=== PATIENT | female | born 1990 | race Caucasian/White ===

== ENCOUNTER 2022-08-01 15:25 | Outpatient (REF) | payer OTHER, SELFPAY | END 2022-08-01 15:26 | disposition home or self-care (01) | LOC: HO.HOSX 15:25 | PROVIDERS: PCP Family Medicine; Visit Provider Physician Assistant | DX: M54.12 Radiculopathy, cervical region (principal); Z47.89 Encounter for other orthopedic aftercare; Z98.890 Other specified postprocedural states | CPT/HCPCS: 99212 ==

== ENCOUNTER 2022-09-11 14:30 | Outpatient (REF) | payer OTHER, SELFPAY | END 2022-09-11 14:31 | disposition home or self-care (01) | LOC: HO.HOSX 14:30 | PROVIDERS: Visit Provider Physician Assistant | DX: Z13.89 Encounter for screening for other disorder (principal) ==

== ENCOUNTER 2022-09-12 14:30 | Outpatient (REF) | payer OTHER, SELFPAY ==
--- NOTE | ~2022-09-12 | XR_ITS ---
EXAMINATION: XR CERVICAL SPINE CLINICAL INFORMATION: Radiculopathy. COMPARISON: None available. TECHNIQUE: 3 views of the cervical spine were obtained. FINDINGS: There is mild straightening of cervical lordosis. There is flexible disc prostheses at C6-C7 disc level. Rest of the disc heights, vertebral heights and alignment is normal. There is minimal posterior cervical spondylosis at C4-C5 disc level. On flexion-extension views there is no subluxation seen. The prevertebral soft tissues are normal. XR/XR cervical spine 4V IMPRESSION: 1. C6-C7 disc prostheses. No subluxation seen on flexion-extension views. 2. There is minimal posterior cervical spondylosis C4-C5 disc level. No visible acute fracture or dislocation seen.
== END 2022-09-12 14:31 | disposition home or self-care (01) ==
LOC: HO.HOSX 14:30
PROVIDERS: Visit Provider Physician Assistant
DX: M54.12 Radiculopathy, cervical region (principal)
CPT/HCPCS: 72050; 99212

== ENCOUNTER 2023-01-28 14:29 | Outpatient (AMB) | payer OTHER, SELFPAY ==
--- NOTE | 2023-01-28 14:35 | A.SPINEOV_ITS ---
Intake Intake Visit Reasons: Neck pain Intake Note: Ms. Juarez is here today c/o neck pain. Fast Food Worker Required: No Assessment & Plan Assessment & Plan (1) Cervical radiculopathy: Code(s): M54.12 - Radiculopathy, cervical region Plan Kathi is a 32 year old female who comes in today as a F/U patient with a new complaint. She is known to our service after having a C6-7 ACDF completed back in June of this year. She reports resolution of her left-sided radiculopathy post surgery. She most recently (2 months ago) had surgery on her right ankle to repair a tendon rupture, and had to use crutches for well over a month. She states that upon stopping the use of her crutches she began having left-sided anterior, posterior, and lateral neck pain associated with shooting radicular pains across her left shoulder, down the left deltoid, through the left triceps, terminating at the left elbow. She states this shooting pain has associated burning and tingling with it. She states that she also has some nonspecific left 3rd and 4th digit pain which she states may be due to her psoriatic arthritis / fibromyalgia which she was unable to treat with her usual DMARD regimen for the last 4 months. She states she just resumed treatment yesterday. Physical exam: Mobility / function: Patient ambulates well, can rise from a seated position without difficulty. Sensation: Grossly intact CN: II-XII grossly intact. Strength Testing Upper Extremities: - Deltoid 5/5 right 5/5 left - Biceps 5/5 right 5/5 left - Triceps 5/5 right 5/5 left - Wrist Ext 5/5 right 5/5 left - Wrist Flex 5/5 right 5/5 left - Hand director athletic 5/5 right 4/5 left - Interossei 5/5 right 4/5 left Pain limiting strength Strength Testing Lower Extremities: - Hip flexion 5/5 right 5/5 left - Knee extension 5/5 right 5/5 left - Dorsiflexion 5/5 right 5/5 left - Plantar flex 5/5 right 5/5 left - EHL 5/5 right 5/5 left Reflexes: - Biceps Right - 2+ Left - 2+ - Triceps Right - 2+ Left - 2+ - Patellar Right - 2+ Left - 2+ - Achilles Right - 2+ Left - 2+ - Plantar Right - 2+ Left - 2+ (+) Spurling's (-) Lhermitte's (-) Clonus (-) Chan?s sign The patient has not had MRI imaging since April of this year. She states the symptoms described above her different than those she was experiencing prior to surgery. At this time I am suspecting the possibility of he disc herniation of the cervical spine which may be causing her to have he left-sided radicular pain that is described above. 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 She also reports that she is having difficulty sleeping and finds herself tossing and turning throughout the night. This case was discussed with Dr. Ramos, we are in agreement that we would like her to be sent for a cervical MRI to re-evaluate the possibility of cervical disc herniation. Total amount of time spent in this visit was 35 minutes in discussion of symptoms, MRI imaging results and subsequent plan of care. Jose Ramos MD,PhD [facility] Orders: Orders MR cervical spine wo con Today M54.12 - Radiculopathy, cervical region Coding Level of Care Code Est Pt Level 4 (60744) Diagnoses Cervical radiculopathy M54.12
== END 2023-01-28 15:12 | disposition home or self-care (01) ==
PROVIDERS: PCP Family Medicine; Visit Provider Neurological Surgery
DX: M54.12 Radiculopathy, cervical region (principal)
CPT/HCPCS: 99214

== ENCOUNTER → 2023-01-28 14:29 | Outpatient (BNVA) | payer OTHER, SELFPAY | PROVIDERS: PCP Family Medicine; Visit Provider Neurological Surgery | DX: M54.12 Radiculopathy, cervical region (principal) | CPT/HCPCS: 99212 ==

== ENCOUNTER 2023-02-04 10:39 | Outpatient (REF) | payer OTHER, SELFPAY ==
--- NOTE | ~2023-02-04 | XR_ITS ---
EXAMINATION: XR CERVICAL SPINE CLINICAL INFORMATION: Cervical radiculopathy COMPARISON: 09/12/2022 TECHNIQUE: 5 views of the cervical spine were obtained including flexion and extension views FINDINGS: There is straightening of normal lordosis C6-C7 disc spacer is stable in position. On neutral view, no listhesis is seen. Trace anterolisthesis C3 on C4 on flexion view and trace retrolisthesis C3 on C4 on extension view. Odontoid is obscured. Trace curvature of the spine to the left. Posterior elements are aligned. No prevertebral soft tissue swelling seen. Lung apices are clear. Soft tissues are unremarkable. XR/XR cervical spine 4V IMPRESSION: Cervical lordotic straightening. Stable postoperative changes C6-C7. Flexion-extension views as described.
== END 2023-02-04 10:40 | disposition home or self-care (01) ==
LOC: HO.HOSX 10:39
PROVIDERS: Visit Provider Physician Assistant
DX: Z13.89 Encounter for screening for other disorder (principal)

== ENCOUNTER 2023-02-26 08:40 | Emergency (ER) | payer OTHER, SELFPAY ==
--- NOTE | ~2023-02-26 | XR_ITS ---
EXAMINATION: XR CHEST CLINICAL INFORMATION: Chest pain shortness of breath COMPARISON: None available. TECHNIQUE: Frontal view of the chest was obtained. FINDINGS: Slight bibasilar atelectasis. No pneumothorax. Trachea is midline. Cardiac mediastinal silhouette is not enlarged. No large pleural region. Osseous structures are intact. Soft tissues are unremarkable. XR/XR chest 1V IMPRESSION: Slight bibasilar atelectasis.
--- NOTE | 2023-02-26 08:44 | ECG_ITS ---
Test Reason : cp Blood Pressure : / mmHG Vent. Rate : 084 BPM Atrial Rate : 084 BPM P-R Int : 134 ms QRS Dur : 098 ms QT Int : 360 ms P-R-T Axes : 038 -02 -05 degrees QTc Int : 425 ms Normal sinus rhythm with sinus arrhythmia Nonspecific T wave abnormality Inferior leads Abnormal ECG No previous ECGs available Referred By: Generic ED Physician Electronically Signed By:RO BORRERO MD
--- NOTE | 2023-02-26 09:05 | ED.GENADULT ---
HPI - General Adult General Chief complaint: Chest Pain Stated complaint: Chest pain - referred by PCP Time Seen by Provider: 02/26/23 08:46 Source: patient Mode of arrival: ambulatory Limitations: no limitations History of Present Illness HPI narrative: 32-year-old female history of asthma, obesity, fibromyalgia, anxiety, cervical radiculopathy status post C6-C7 ACDF in June 2022, presents with complaints of chest pain, shortness of breath, neck pain, all of which have been going on intermittently for a few weeks however acutely worsening today she spoke to her neuro spine PA data conversion developer who advised patient to come in for evaluation. Chest pain substernal, nonradiating associated with shortness of breath at rest and with exertion. Also complains of neck pain going on for a while but worsening in severity at times has intermittent numbness to b/l UE. Patient reports she was recently hospitalized at [facility] for cardiac/noncardiac chest pain and cervical angina. Also reports in October had ankle surgery. Not on blood thinners. No history of DVT. Denies fevers, chill, nausea, vomiting, abdominal pain, leg swelling, trauma. Related Data Previous Rx's Medication Instructions Recorded ketorolac 10 mg tablet 10 mg PO TID PRN pain 5 days #15 02/26/23 tabs lidocaine 5 % topical patch 1 patch topical DAILY PRN pain #15 02/26/23 ea prednisone 20 mg tablet 40 mg (2 x 20 mg) PO DAILY 5 days 02/26/23 #10 tabs Allergies Allergy/AdvReac Type Severity Reaction Status Date / Time No Known Allergies Allergy Verified 02/26/23 08:44 Review of Systems Review of Systems: Constitutional : No Weight loss, No Fever, No Chills, No Fatigue, No Malaise ENT/Mouth : No sore throat, No Rhinorrhea Eyes: No Eye Pain, No Swelling, No Redness Cardiovascular : + Chest Pain, + SOB, No Dyspnea on Exertion, No Orthopnea, No Edema, No Palpitations Respiratory : No Cough, No Sputum, No Wheezing Gastrointestinal : No Nausea, No Vomiting, No Diarrhea, No Constipation, No abdominal Pain, No Hematochezia, No Melena Genitourinary : No Dysuria, No Urinary Frequency, No Hematuria, Musculoskeletal : No joint pain, No Myalgias, No Joint Swelling, + neck pain Skin : No Skin Lesions, No rash Neuro : No Weakness, No Numbness, No Dizziness, No Headache Psych : No Anxiety/Panic, No Depression All other systems reviewed and are negative Yes all other systems are reviewed and are negative [facility] Past Medical History Attestation statement: The following information was validated with the patient. Source: old records reviewed and nursing notes reviewed Social History Social History Advance Directives: No Advance Directives Information Provided: No Physical Exam ED Vital Signs: Vital Signs - 24 hr 02/26/23 09:14 02/26/23 10:51 02/26/23 15:25 Temperature 98.3 F 97.6 F Pulse Rate 76 82 82 Respiratory Rate 14 16 18 Blood Pressure 132/72 114/80 123/79 Pulse Oximetry 97 97 99 Oxygen Delivery Method Room Air Room Air Room Air BMI result Body Mass Index 34.6 vss Appearance: Alert.? Oriented X3.? No acute distress.? Head: Normocephalic, atraumatic, no step-offs or deformities Eyes: Pupils equal, round and reactive to light.? ENT: Pharynx normal.? Neck: Normal inspection.?.?+ Spurling sign b/l - lehermit. CVS: Normal heart rate and rhythm.? Pulses normal.? Respiratory: No respiratory distress.? Breath sounds normal.? Abdomen: Soft and nontender.? Skin: Skin warm and dry.? Normal skin color.? Normal skin turgor.? Extremities: No lower extremity edema.? No calf ttp. 5/5 strength to bilateral upper and lower extremities. Normal hand scaffold setter b/l. No wrist drop. Normal sensation distally. Neuro: Oriented X 3.? No motor deficit.? No sensory deficit. CN 2-12 intact. No saddle paresthesias. Ambulating w/ steady gait normal coordination. Rectal exam: Kandice SEARS at bedside: unremarkable, normal rectal tone, and anal wink. Course Reevaluation(s) Reevaluation #1: Records were obtained from [facility] it appears as though patient was seen on 02/21/2023 she had a ultrasound down are lower extremity on the right venous duplex negative for DVT. Time: 09:40 Reevaluation #2: CBC with no acute findings. Chemistry unremarkable no acute electrolyte abnormalities. Beta hCG negative. Troponin negative, EKG nonischemic, patient without significant risk factors for ACS unlikely ACS. Patient's D-dimer negative. I do not suspect PE, patient is not tachycardic, or tachypneic. Spoke to Jose Louis from neuro spine if no new neurological sx no need for emergent MRI. Patient has a hx of two level fusion w/ new onset pain w/ radicular sx so MRI was recommended but no neurological sx on exam. He advised patient to come in to be seen if worsening sx. He is concerned for ? Cervical disc herniation. Time: 11:54 Reevaluation #3: Reported to neuro spine that she has been urinating on herself randomly. It went in again recess neurological exam, neuro was nonfocal no saddle paresthesias patient ambulatory with steady gait normal coordination. I did do a rectal exam on this patient patient has normal anal wink and rectal tone. Discussing this case w/ my attending Bladder scan pending no episodes of incontinence here patient has the urge to pee and goes to the bathroom appropriately. No episodes of bowel incontinence either. No signs of urinary retention or complaints of urinary retention. Time: 13:19 Additional Reevaluation(s): Bladder scan 9 not retaining again unlikely cord compression or cauda equina. 1520- Discussed this case w/ Dr. Sweeney who agrees w/ my plan based of my hx no need for emergent MRI. Dr. Griffin will go in to evaluate patient. 1552- UA w/o infection. Dr. Griffin spoke to patient & evaluated her no need for MRI at this time, she spoke to her about dispo. 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 I agree with this plan. Educated patient on diagnosis and treatment plan, answered all question, patient verbalizes understanding. At this time patient will be discharged home, advised to return with new or worsening symptoms. Educated on worrisome signs and symptoms and when to return. At this time I feel comfortable discharge home. Medications Administered Discontinued Medications Generic Name Dose Route Start Last Admin Trade Name Freq PRN Reason Stop Dose Admin Ketorolac Tromethamine 30 mg 02/26/23 11:58 02/26/23 12:12 Ketorolac Tromethamine 15 Mg/Ml Vial IVPUSH 02/26/23 11:59 30 mg ONCE ONE Administration Lorazepam 1 mg 02/26/23 12:05 02/26/23 12:13 Lorazepam 1 Mg Tablet PO 02/26/23 12:06 1 mg ONCE ONE Administration Medical Decision Making Medical Decision Making [facility] Narrative: 32-year-old female longstanding history of cervical radiculopathy status post ACDF presenting w/ neck pain, cp, sob Physical exam + spurlings sign b/l Most likely cervical angina vs msk pain vs cervical radiiculopathy. CP and SOB unlikley pulmonary embolism (PERC negative) versus angina versus ACS. Unlikely dissection, acute respiratory distress, cervical myelopathy, cord compression. Unlikely pneumonia, viral illness. Other differentials including anxiety. I do not suspect cauda equina, cord compression Plan- labs, imaging, , dimer, ekg UA Differential Diagnosis Differential Diagnoses: The differential diagnosis associated with the presentation includes Most likely cervical angina vs msk pain vs cervical radiiculopathy. CP and SOB unlikley pulmonary embolism (PERC negative) versus angina versus ACS. Unlikely dissection, acute respiratory distress, cervical myelopathy, cord compression. Unlikely pneumonia, viral illness. Other differentials including anxiety. I do not suspect cauda equina, cord compression Admission/Observation Consideration of admission/observation: Escalation of care including admission/observation considered possible Consult Healthcare Provider Management of the patient was discussed with: Assembly Department Supervisor (Neuro spine) Lab Data [facility] Lab Attestation statement: I reviewed the patient's lab results. 02/26/23 09:09 02/26/23 09:09 Labs: Lab Results 02/26/23 02/26/23 02/26/23 Range/Units 09:09 09:34 15:27 WBC 6.9 (4.8-10.8) X10*3/uL RBC 4.18 L (4.20-5.50) X10*6/uL Hgb 12.7 (12.0-16.0) g/dl Hct 37.8 (37.0-47.0) % MCV 90.4 (80.0-98.0) fL MCH 30.4 (27.0-33.0) pg MCHC 33.6 (31.0-35.0) g/dl RDW 12.6 (11.0-16.0) % Plt Count 382 (160-400) X10*3/uL MPV 9.0 L (9.4-12.3) fL Immature Gran % (Auto) 0.4 (0.0-0.4) % Neut % (Auto) 54.6 (45-73) % Lymph % (Auto) 34.9 (20-40) % Perry % (Auto) 6.4 (2-11) % Eos % (Auto) 2.8 (0-4) % Baso % (Auto) 0.9 (0-2) % Lymph # (Auto) 2.4 (1.2-4.9) X10*3/uL Perry # (Auto) 0.4 (0.1-1.2) X10*3/uL Eos # (Auto) 0.2 (0.0-0.4) X10*3/uL Baso # (Auto) 0.1 (0.0-0.2) X10*3/uL Abs Immat Gran (auto) 0.03 (0.00-0.03) X10*3/uL Absolute Neuts (auto) 3.8 (2.0-8.3) x10*3/uL Absolute Nucleated RBC 0.000 (0.0-0.012) X10*3/uL Nucleated RBC % (auto) 0.0 (0.0-0.2) /100WBC D-Dimer High Sensitivty < 150 NG/ML Sodium 141 (135-145) mmol/L Potassium 4.7 (3.3-5.1) mmol/L Chloride 110 H (96-108) mmol/L Carbon Dioxide 24 (22-29) mmol/L Anion Gap 12 (12-20) BUN 12 (9-16) mg/dL Creatinine 0.79 (0.5-1.4) mg/dL Estim Creat Clear Calc 130.1 Estimated GFR > 60 Random Glucose 108 (60-115) mg/dL Calcium 9.4 (8.4-10.2) mg/dL Magnesium 2.0 (1.6-2.6) mg/dL Total Bilirubin 0.2 (0.0-1.0) mg/dL AST 23 (5-31) U/L ALT 60 H (0-31) U/L Alkaline Phosphatase 89 (39-117) U/L Troponin I High Sens < 2.7 (<3.5-17.0) ng/L Total Protein 7.1 (6.5-8.0) g/dL Albumin 4.1 (3.5-5.0) g/dL Beta HCG, Quant < 2 mIU/mL Urine Color Yellow Urine Appearance Clear Urine pH 6.0 (5.0-9.0) Ur Specific [place] <= 1.005 (1.005-1.025) Urine Protein Negative (Neg-Trace) mg/dL Urine Glucose (UA) Negative (Negative) mg/dL Urine Ketones Negative (Negative) mg/dL Urine Blood Negative (Negative) Urine Nitrite Negative (Negative) Ur Leukocyte Esterase Negative (Negative) Independent Interpretation I performed an independent interpretation of an: Plain X-Ray (XR/XR chest 1V IMPRESSION: Slight bibasilar atelectasis. ) Radiology Impression Discussion of test interpretation with radiology: I have reviewed the radiologist's reading. Prescription Management I considered prescription management with: Pain Medication and Other (lidoderm patches ) Chronic Conditions Patient?s care impacted by: Other (Cervical myelopathy) Critical Care Time Critical Care Time Critical Care Time: Yes Total Critical Care Time: 60 Attestation: I attest to this time spent taking care of the patient, obtaining history, physical, reviewing labs, imaging, speaking to my attending, speaking to specialist. Discharge Plan Discharge Clinical Impression: Cervical radiculopathy, Chest pain, Shortness of breath, Urinary incontinence Patient Disposition: Home, Self-Care Instructions: Chest Pain (ED), Cervical Radiculopathy (ED) Additional Instructions: Take your medications as prescribed. If you were prescribed antibiotics today, it is important that you take your medication to their entirety, do not skip any doses, do not finish them early. Follow-up with your primary care provider this week. Return to the emergency department with new or worsening symptoms. Such as fevers, chills, chest pain, shortness of breath, nausea, vomiting, dizziness, headache, vision changes, lethargy In case of emergency call 911 Your troponin was normal which is a cardiac enzyme, your EKG looked good. D-dimer screening test for blood clot was negative. Your urine did not show any infection. Your chest x-ray results are as stated below, nothing to be done about this. Please follow-up with your PCP, neuro spine and Hematology Toradol has been sent to your pharmacy, you tolerated this well in the department. Please take this as prescribed do not take this with ibuprofen, or other NSAIDs, do not mix this with alcohol. Side effects of this medication including increased risk for bleeding and possible kidney injury. XR/XR chest 1V IMPRESSION: Slight bibasilar atelectasis. Prescriptions: New prednisone 20 mg tablet 40 mg PO DAILY 5 Days Qty: 10 0RF ketorolac 10 mg tablet 10 mg PO TID PRN (Reason: pain) 5 Days Qty: 15 0RF lidocaine 5 % adhesive patch,medicated 1 patch topical DAILY PRN (Reason: pain) Qty: 15 0RF Rx Instructions: leave on most painful area for up to 12 hrs Referrals: [facility] [Provider Group] - 1 day Hailee Garcia MD [Primary Care Provider] - 2 days Neo Ramos MD, PhD [Physician] - 1 day Stand Alone Forms: Work/School Release
[2023-02-26 09:14] VITALS: BP 132/72; PULSE 76; RESP 14; TEMP 36.8; O2SAT 97; BMI 34.6
[2023-02-26 09:14] LABS: MANUAL DIFF FLAG NO
[2023-02-26 09:21] LABS: Basophils Absolute Auto 0.1 X10*3/uL (0.0-0.2); Basophils Percent Auto 0.9 % (0-2); Eosinophils Absolute Auto 0.2 X10*3/uL (0.0-0.4); Eosinophils Percent Auto 2.8 % (0-4); Hematocrit 37.8 % (37.0-47.0); Hemoglobin 12.7 g/dl (12.0-16.0); Imm Gran Abs Auto 0.03 X10*3/uL (0.00-0.03); Imm Gran Pct Auto 0.4 % (0.0-0.4); Lymphocytes Absolute Auto 2.4 X10*3/uL (1.2-4.9); Lymphocytes Percent Auto 34.9 % (20-40); Mean Corpuscular HGB Conc 33.6 g/dl (31.0-35.0); Mean Corpuscular Hemoglobin 30.4 pg (27.0-33.0); Mean Corpuscular Volume 90.4 fL (80.0-98.0); Monocytes Absolute Auto 0.4 X10*3/uL (0.1-1.2); Monocytes Percent Auto 6.4 % (2-11); Neutrophils Absolute Auto 3.8 x10*3/uL (2.0-8.3); Neutrophils Percent Auto 54.6 % (45-73); Platelet Count 382 X10*3/uL (160-400); Red Blood Count 4.18 X10*6/uL (4.20-5.50); Red Cell Distribution Width 12.6 % (11.0-16.0); White Blood Count 6.9 X10*3/uL (4.8-10.8)
[2023-02-26 09:41] LABS: Alanine Aminotransferase 60 U/L (0-31); Albumin Level 4.1 g/dL (3.5-5.0); Alkaline Phosphatase 89 U/L (39-117); Anion Gap 12 (12-20); Aspartate Amino Transferase 23 U/L (5-31); Bilirubin Total 0.2 mg/dL (0.0-1.0); Blood Urea Nitrogen 12 mg/dL (9-16); Calcium 9.4 mg/dL (8.4-10.2); Carbon Dioxide 24 mmol/L (22-29); Chloride 110 mmol/L (96-108); Creatinine Clr Calc Pharmacy 130.1; Estimated Glomerular Filt Rate > 60; Glucose Random 108 mg/dL (60-115); HCG Quantitative < 2 mIU/mL; Potassium 4.7 mmol/L (3.3-5.1); Sodium 141 mmol/L (135-145); Total Protein 7.1 g/dL (6.5-8.0); Troponin-I High Sensitivity < 2.7 ng/L (<3.5-17.0)
--- NOTE | 2023-02-26 09:48 | PC.NURSE ---
alert and oriented, respirations even and unlabored. complaining of back, neck, and chest pain with associated shortness of breath. also stating that she has anxiety and did not take her anxiety medication this morning prior to coming to the emergency department. IV established by provider, labs obtained and sent. placed on equipment monitor phototypesetting in NSR. call kay within reach
[2023-02-26 09:52] LABS: D Dimer High Sensitivity < 150 NG/ML
[2023-02-26 10:51] VITALS: BP 114/80; PULSE 82; RESP 16; TEMP 36.4; O2SAT 97
--- NOTE | 2023-02-26 11:49 | PC.NURSE ---
continues to rest quietly in room, call kay within reach.
[2023-02-26] MEDS: Ketorolac Tromethamine 15 MG/ML VIAL 30 MG IVPUSH (12:12)
[2023-02-26] MEDS: LORazepam 1 MG TABLET PO (12:13)
[2023-02-26 15:25] VITALS: BP 123/79; PULSE 82; RESP 18; O2SAT 99
[2023-02-26 15:34] LABS: Appearance Urine Clear; Color Urine Yellow; Glucose Urine UA Negative (Negative); Leukocyte Esterase Urine Negative (Negative); Nitrite Urine Negative (Negative); Specific Gravity - Urine <= 1.005 (1.005-1.025); Urine Blood Negative (Negative); Urine Ketones Negative (Negative); Urine Protein Negative (Neg-Trace)
[2023-02-26 17:16] LABS: Erythrocyte Sedimentation Rate 4 MM/HR (0-20)
== END 2023-02-26 16:12 | disposition home or self-care (01) ==
PROVIDERS: Physician Assistant; Emergency Provider Student in an Organized Health Care Education/Training Program; PCP Family Medicine
DX: R07.9 Chest pain, unspecified (principal); M54.12 Radiculopathy, cervical region; R06.02 Shortness of breath; R32 Unspecified urinary incontinence
CPT/HCPCS: 36415; 51798; 71045; 80053; 81003; 83735; 84484; 84702; 85025; 85379; 85652; 86140; 93005; 96374; 99284; 99285; J1885

== ENCOUNTER 2023-03-11 16:02 | Outpatient (REF) | payer OTHER, SELFPAY | END 2023-03-11 16:03 | disposition home or self-care (01) | LOC: HO.HOSX 16:02 | PROVIDERS: Visit Provider Physician Assistant | DX: Z13.89 Encounter for screening for other disorder (principal) ==

== ENCOUNTER 2023-03-18 10:12 | Outpatient (REF) | payer OTHER, SELFPAY ==
--- NOTE | ~2023-03-18 | XR_ITS ---
EXAMINATION: XR CERVICAL SPINE CLINICAL INFORMATION: Post procedure examination. COMPARISON: Cervical spine radiographs dated 02/06/2023. TECHNIQUE: Frontal and lateral (neutral, flexion and extension) views of the cervical spine were obtained. FINDINGS: Vertebral body heights and alignment are normal. An intact disc prosthesis is seen at C6-C7, without hardware failure or loosening noted. The remaining disc spaces are well-maintained. No acute fracture or spondylolisthesis is seen. There is no instability with flexion or extension. The posterior elements are intact. The paravertebral soft tissues are unremarkable. XR/XR cervical spine 4V IMPRESSION: There is well-maintained alignment status-post C6-C7 disc prosthesis placement. No hardware failure or loosening is seen.
== END 2023-03-18 10:13 | disposition home or self-care (01) ==
LOC: HO.HOSX 10:12
PROVIDERS: Visit Provider Physician Assistant
DX: M54.12 Radiculopathy, cervical region (principal); Z98.890 Other specified postprocedural states
CPT/HCPCS: 72050; 99212

== ENCOUNTER 2023-03-18 13:55 | Outpatient (AMB) | payer OTHER, SELFPAY ==
--- NOTE | 2023-03-18 14:06 | A.OFFVIS_ITS ---
Intake Intake Visit Reasons: F/u MRI with xrays Project/Production Manager Imaging Required: No Allergies No Known Allergies Allergy (Verified 02/26/23 08:44) Assessment & Plan Assessment & Plan (1) Cervical radiculopathy: Code(s): M54.12 - Radiculopathy, cervical region Plan Kathi is a pleasant 32-year-old female comes in today for a follow-up appointment after a C6-7 total disc arthroplasty that was completed in June of this year. She has had a difficult postoperative course that is included a period of resolution of symptoms with no neck pain or left-sided radiculopathy, followed by a return of her neck symptoms/pain and radiculopathy on left side. Her left-sided radiculopathy is not exactly the same as it previously was, but still is painful to a similar extent per report. The patient is neurologically intact and has no significant strength deficits. She is able to ambulate well and rises from a seated position without difficulty. She is able to perform fine motor movements and reports no significant numbness/weakness. She does endorse some swelling over the dorsal surface of her left arm but is unsure of his related to her neck problems or as a consequence of her rheumatologic conditions for which she is followed by design technology professor. Kathi is a cervical MRI and x-ray imaging reviewed with the attending neurosurgeon Dr. Ramos. There is no significant impingement noted on cervical MRI, but the layer of C6-7 is confounded by her instrumentation. X-ray imaging shows stable placement of her artificial disc, but notably does not show much movement of the disc with flexion extension. The patient was also evaluated alongside Dr. Ramos who discussed the possibility of removing the artificial disc and replacing it with a fixed cage fusion. We discussed with this process would entail an offer this is a potential solution. Kathi reported that she would prefer to attempt another round of physical therapy before considering a repeat of her cervical spinal surgery. We will refer her for 6 weeks of physical therapy at which point she will follow up with our office for re-evaluation. Total amount of time spent in this visit was 25 minutes in discussion of symptoms, MRI / X-ray imaging results and subsequent plan of care Jose Ramos MD,PhD [facility] Orders: Orders XR cervical spine 4V Today Z98.890 - Other specified postprocedural states PT Evaluation and Treatment Today M54.12 - Radiculopathy, cervical region PT Evaluation and Treatment 08/01/22 M54.12 - Radiculopathy, cervical region Coding Level of Care Code Est Pt Level 3 (33180) Diagnoses Cervical radiculopathy M54.12
== END 2023-03-18 14:14 | disposition home or self-care (01) ==
PROVIDERS: PCP Family Medicine; Visit Provider Physician Assistant
DX: M54.12 Radiculopathy, cervical region (principal)
CPT/HCPCS: 99213

== ENCOUNTER 2023-05-27 11:44 | Outpatient (AMB) | payer OTHER, SELFPAY ==
--- NOTE | 2023-05-27 12:20 | A.SPINEOV_ITS ---
Intake Intake Visit Reasons: 6 week follow up Allergies No Known Allergies Allergy (Verified 02/26/23 08:44) Assessment & Plan Assessment & Plan (1) S/P spinal surgery: Code(s): Z98.890 - Other specified postprocedural states Plan Dear colleague, 05/27/2023, I saw for preoperative visit Kathi kay who continues to suffer from severe neck pain after placement of a artificial disc. The theory that this is causing micro motion in the neck and therefore she scheduled to replace the artificial disc by a cervical fusion in July. We went over the procedure and expected postoperative course. I spent 15 minutes in his consult. Neo Ramos MD, PhD Spine Fellowship Trained Neurosurgeon Director, [facility] Coding Level of Care Code Est Pt Level 2 (93637) Diagnoses S/P spinal surgery Z98.890
== END 2023-05-27 12:27 | disposition home or self-care (01) ==
PROVIDERS: PCP Family Medicine; Visit Provider Neurological Surgery
DX: Z98.890 Other specified postprocedural states (principal)
CPT/HCPCS: 99212

== ENCOUNTER → 2023-05-27 11:44 | Outpatient (BNVA) | payer OTHER, SELFPAY | PROVIDERS: PCP Family Medicine; Visit Provider Neurological Surgery | DX: Z98.890 Other specified postprocedural states (principal) | CPT/HCPCS: 99212 ==

== ENCOUNTER 2024-06-07 08:52 | Outpatient (RCR) | payer OTHER, SELFPAY ==
--- NOTE | 2024-05-10 15:44 | MHC.OT.EP ---
[address] [phone] Occupational Therapy Plan of Care Patient Name: Kathi Juarez Date of Evaluation: 05/10/24 Diagnosis: B Psoriatic arthritis Pain Location: R hand 8/10 L hand 6/10 Pain Score: Pain Scale Used: Numeric (0 - 10) Aggravating Factors: Alleviating Factors: Assessment: was just diagnosed w/ a minor RTC tear in her L shoulder. 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 She presents today w/ full wrist and digit ROM. She reports mild paresthesia in B hands (which MD told her is related to her neck pain and she is seeing an orthopedic MD in [place] for tx), weak hand spring tester and thenar wasting. Pt has been referred to skilled OT therapy for education on joint protection, increase hand spring tester, and decreased pain for the increased functional use of her B hands. 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 heat) to decrease pain and increase the functional use of her B hands Treatment Plan: Therapeutic Exercise Therapeutic Activity Home Exercise Program Splinting Neuro Re-ed Patient Education Desensitization/Sensory Re-ed Edema Control ADL Training Ultrasound NMES Iontophoresis Paraffin Fluidotherapy MHP Cold Packs Joint Mobilization Soft Tissue Mobilization Kinesiotaping Other (see comments) Electronically Signed By: Dana Ma OTR/L Please Sign and return to therapist. Thank you once again for your referral.
== END 2024-07-08 09:28 | disposition home or self-care (01) ==
LOC: HO.OT 08:52
PROVIDERS: PCP Internal Medicine; Visit Provider Internal Medicine
DX: L40.50 Arthropathic psoriasis, unspecified (principal)
CPT/HCPCS: 97035; 97110; 97140; 97165; 97535